=== PATIENT | female | born 1960 | race Caucasian/White ===

== ENCOUNTER → 2017-04-16 | Outpatient (CLI) | payer MEDICARE, BC, MEDICAID ==
[~2017-04-16] MED LIST: ASPRIN; ESTRADIOL1 MG PO; FERROUS SULFATE27 MG PO; GLUCOSAMINE CHO1 CAP PO; LEVOTHYROXINE0.05 MG PO; MULTI VITAMINS1 TAB PO; NORCO 325 MG-51 TAB PO; OMEPRAZOLE DR20 MG PO; PERCOCET 325 MG1 TA2 PO; ROPINIROLE HY0.25 MG PO; SEE INSTRUCTIONS IT; SUMATRIPTAN SUC50 MG PO; TOVIAZ8 MG PO; VENLAFAXINE HCL75 M1 PO; [UNRECOGNIZED DRUG - CODE]
== END ==
LOC: COL.RAD 12:44
DX: M25.512 Pain in left shoulder (principal)
CPT/HCPCS: J3301; Q9967

== ENCOUNTER → 2017-06-22 | Outpatient (CLI) | payer MEDICARE, BC, MEDICAID | LOC: MC.RAD 10:09 | DX: Z12.31 Encounter for screening mammogram for malignant neoplasm of breast (principal) ==

== ENCOUNTER → 2017-07-23 | Outpatient (CLI) | payer MEDICARE, BC, MEDICAID | LOC: BHSO 10:37 | DX: F33.1 Major depressive disorder, recurrent, moderate (principal) ==

== ENCOUNTER → 2017-09-13 | Outpatient (CLI) | payer MEDICARE, BC, MEDICAID | LOC: BHSO 13:22 | DX: F33.41 Major depressive disorder, recurrent, in partial remission (principal) | CPT/HCPCS: G0463 ==

== ENCOUNTER → 2018-02-20 | Outpatient (CLI) | payer MEDICARE, BC, MEDICAID | LOC: BHSO 14:29 | DX: F43.10 Post-traumatic stress disorder, unspecified (principal) | CPT/HCPCS: G0463 ==

== ENCOUNTER → 2018-05-02 | Outpatient (CLI) | payer MEDICARE, BC, MEDICAID | LOC: BHSO 14:40 | DX: F43.10 Post-traumatic stress disorder, unspecified (principal) | CPT/HCPCS: G0463 ==

== ENCOUNTER → 2018-07-16 | Outpatient (CLI) | payer MEDICARE, BC, MEDICAID | LOC: MC.RAD 07:48 | DX: Z12.31 Encounter for screening mammogram for malignant neoplasm of breast (principal) ==

== ENCOUNTER → 2019-11-04 | Outpatient (CLI) | payer MEDICARE, BC, MEDICAID | LOC: MC.RAD 10:00 | DX: Z12.31 Encounter for screening mammogram for malignant neoplasm of breast (principal) ==

== ENCOUNTER 2020-07-06 13:27 | Inpatient (IN) | payer MEDICARE, BC, MEDICAID ==
[~2020-07-06] VITALS: Ht 172.8 cm; Wt 88.4 kg
--- NOTE | 2020-09-01 07:20 | NUR ---
The patient ambulated back to [place] [facility] with her walker using a steady gait and appeared to tolerate the activity well. Vital signs obtained. Consent signed. The patient was instructed to change in the hosptial gown and notify the staff when she is changed.
--- NOTE | 2020-09-01 08:05 | NUR ---
0805 Pre op medications were administered as ordered. 0815 18G IV started in left forearm with one stick, LR Infusing without difficulty. Chlorhexidine scrub completed to right knee. TAMICA hose applied to left leg. 0830 Assessment completed. Heart Reg. Lungs clear. Bowel sound audible. Call light is within reach. The patient denies any further needs at this time. 0930 The patient was assisted to bedside commode by EARL Mccallum. She appeared to tolerate the activity well and voided without difficulty. 1030 The patient was given fresh warm blankets at this time. The patient's call light remains within reach. The patient denies any further needs will continue to monitor the patient. 1130 The patient reqeusts fresh warm blankets and for her room lights to be dimmed at this time. Call light is within reach. Will continue to monitor the patient.
--- NOTE | 2020-09-01 11:55 | NUR ---
The patient was taken to the operating room via cart at this time. The patient's chart was sent with her to the operating room at this time. The patient's belongings were taken to the recovery room and will be transferred with the patient up to the 3rd floor post operatively.
--- NOTE | 2020-09-01 21:30 | NUR ---
PT RESTING IN BED. A&OX4. HAD SPINAL IN OR. HAS RETURNED SENSATION TO TOES BUT TINGLING. 2:1 PIVOT TRANSFER TO BSC. INCONTINENT URINE. VOIDED >1000CC CLEAR DILUTE URINE. PT HAS HX INCONTINENCE. PROVIDED BRIEFS W/ PAD. CHNAGED LINENS. TRANFERRED BACK TO BED. PT C/O RT KNEE PAIN. LEVEL5/10. RAMON WRAP THIGH TO ANKLE CDI. PEDAL PULSES PRESENT. SEE MAR FOR PAIN MEDS GIVEN.
[2020-09-02] VITALS (7 sets, daily range): BP systolic 101–145; BP diastolic 54–60; PULSE 51–74; TEMP 97.5–98.4
--- NOTE | 2020-09-02 01:52 | NUR ---
PT HAVING LEVEL 10/10 RT KNEE PAIN. SEE MAR FOR DILAUDID GIVEN. ASSISTED UP TO BSC. PT VOIDING LG AMTS/INCONT. CHANGED PAD. BACK TO BED. PT VERY APPRECIATIVE OF CARES GIVEN. TAMICA POWER OF AND JESSIE IN BR FOR URINARY LEAKAGE. SCD TO LLE. CALL LIGHT IN REACH.
--- NOTE | 2020-09-02 02:10 | NUR ---
SEE WRITTEN NURSING NOTES. SEE MAR FOR PAIN MEDS GIVEN.
[2020-09-02 06:44] LABS: HEMOGLOBIN 11.2 g/dl (12.5-16.0)
--- NOTE | 2020-09-02 06:45 | NUR ---
awake resting in bed, bedside shift report received from EARL Ortiz
[2020-09-02 07:00] LABS: HEMATOCRIT 34.6 % (37.0-47.0)
--- NOTE | 2020-09-02 08:20 | NUR ---
sitting up in chair eating breakfast, was up to bathroom and ambulated well, requesting to take a walk after breakfast and then have pain meds
--- NOTE | 2020-09-02 08:40 | NUR ---
ambulating out to [place] with physical therapy, then returns to room and remains up in chair
--- NOTE | 2020-09-02 09:00 | NUR ---
full assesment completed, medicated with hydrocodone 7.5mg 2 tabs for c/os pain 02/15, no grimacing or moaning noted
--- NOTE | 2020-09-02 12:00 | NUR ---
sitting up in chair ready for lunch, bulky dressing removed from right leg, incision CD&I and covered with aquacel dressing
--- NOTE | 2020-09-02 12:51 | NUR ---
medicated with hydrocodone 7.5mg 2 tabs for c/os pain and in anticipation of therapy
--- NOTE | 2020-09-02 13:11 | NUR ---
bedside shift report given to EARL Landry
--- NOTE | 2020-09-02 13:22 | NUR ---
Received report from EARL Dia. Assumed care for Pt.
--- NOTE | 2020-09-02 15:07 | NUR ---
OT notified MARLA that the patient is interested in getting a tub transfer bench and would like if one could be delivered to her. MARLA met with the patient and her friend, Teodoro (ph#[phone]), to discuss discharge plan. The patient lives alone in [place] in a detention apartment complex. Teodoro states that he lives in the same complex. She reports independence with ADLs and has a cane, crutches, and walker. The patient's PCP is Dr. Nathaniel Tobin and she receives her medications from [facility]. She reports no difficulties obtaining her meds. The patient's DPOA-HC is in EMR and it designates her friend, Teodoro. The patient plans to return home upon discharge and receive outpatient PT at [facility]. MARLA discussed home health services vs outpatient therapy. The patient reports that she would prefer to continue with outpatient therapy. MARLA addressed the tub transfer bench. The patient is interested in getting one and for it to be delivered to her home. MARLA contacted [employer], [employer], and [facility] They were all out of stock. [employer] has some in stock and they are $123.50 plus tax. [employer] also has some in stock at they are $150 plus tax. MARLA met with the patient and her friend to inform. [facility] and have it delivered to her house when she discharges. MARLA notified Yuli at [facility] of this. [facility] will keep one on hold for the patient. MARLA provided the patient with [facility] phone [facility]. The patient reports that she will also be borrowing a transport chair from her shinto. SW to continue to follow.
--- NOTE | 2020-09-02 16:10 | NUR ---
Rounded on Pt, has C/O pain 02/15, medications were given for relief.
[2020-09-02] MEDS ORDERED: LEXAPRO 10MG10 MG PO (19:35)
[2020-09-02] MEDS ORDERED: MYRBETR50MG PO (19:36)
[2020-09-02] MEDS ORDERED: SYNTHROID0.05 MG/TA PO (19:36)
[2020-09-02] MEDS ORDERED: PEPCID40 MG PO (19:36)
[2020-09-02] MEDS ORDERED: REQUIP0.25 MG PO (19:37)
[2020-09-02] MEDS ORDERED: RESTASIS MULTI5.5 ML OP (19:37)
[2020-09-02] MEDS ORDERED: DILAUDID 2MG/2 MG/M1 SQ (19:38)
[2020-09-02] MEDS ORDERED: K-DUR20 MEQ PO (19:39)
[2020-09-02] MEDS ORDERED: LASIX 40MG TABL40 MG PO (19:39)
[2020-09-02] MEDS ORDERED: MULTIPLE VITAMI1 TA5 PO (19:40)
[2020-09-02] MEDS ORDERED: MAG-OX 400400 MG/TAB PO (19:40)
[2020-09-02] MEDS ORDERED: VITAMIN D31000 IU PO (19:41)
[2020-09-02] MEDS ORDERED: MIRALAX PA17 GM/Dose PO ×2 (19:41→19:49)
[2020-09-02] MEDS ORDERED: VITAMIN B12 1541 TAB PO (19:41)
[2020-09-02] MEDS ORDERED: HYDROEYE PO (19:42)
[2020-09-02] MEDS ORDERED: [UNRECOGNIZED DRUG - OTHER] OU (19:43)
[2020-09-02] MEDS ORDERED: VITAMINC1000TA PO (19:43)
[2020-09-02] MEDS ORDERED: STOOL SOFTENER100 M2 PO (19:44)
[2020-09-02] MEDS ORDERED: IRON TABLETS325 MG PO (19:44)
[2020-09-02] MEDS ORDERED: FOLIC ACID0.4 MG PO (19:45)
[2020-09-02] MEDS ORDERED: FOLATE PO (19:45)
[2020-09-02] MEDS ORDERED: FLONASEALLERGY NS (19:46)
[2020-09-02] MEDS ORDERED: NORCO 325 MG-51 TAB PO (19:47)
[2020-09-02] MEDS ORDERED: IMITREX ST6 MG/0.5 M SQ (19:48)
[2020-09-02] MEDS ORDERED: ULTRAM 50MG TAB50 MG PO (19:48)
[2020-09-02] MEDS ORDERED: PHENERGAN12.5 MG/SU RC (19:49)
--- NOTE | 2020-09-02 20:30 | NUR ---
ASSISTED PT TO BR. VOIDING W/O DIFFICULTY/ URINARY INCONTINECE. WEARS BRIEF AND PAD. TOOK WALK IN [place] WITH WALKER. NICKI WELL. BACK TO BED. SEE MAT FOR PAIN MEDS GIVEN. SCD'S ON. CALL LIGHT IN REACH.
[2020-09-03] VITALS: BP 120/54; PULSE 84; TEMP 98.3
[2020-09-03 04:00] VITALS: BP 118/52; PULSE 76; TEMP 97.4
--- NOTE | 2020-09-03 05:35 | NUR ---
INT NEEDLE DC'D AT THIS TIE. UP TO BR. DENIES NEED FOR PAIN MED. USING GOOD SAFETY JUDGEMENT.
--- NOTE | 2020-09-03 06:04 | NUR ---
PT NOW REQUESTED PAIN MED. RELATES SHE IS TRYING TO DO WITHOUT. PAIN LEVEL "8" SEE MAR FOR PAIN MED GIVEN.
[2020-09-03 08:05] VITALS: BP 130/59; PULSE 82; TEMP 98.4
--- NOTE | 2020-09-03 09:40 | NUR ---
PT UP AND OUT TO [place] WITH THERAPY. PT FULLY PARTICIPATED AND THEN RETURNED TO ROOM. PAIN CONTROLLED WITH PO MEDS. PT SHOWERED WITH OT THIS AM. DRESSING TO KNEE CDI WITH AQUACEL OVER INCISION. PT EATING AND DRINKING WITH NO NAUSEA OR VOMITING.
[2020-09-03 11:59] VITALS: BP 130/59; PULSE 78; TEMP 98.8
[2020-09-03] MEDS ORDERED: NORCO 325 MG-7.1 TAB PO (12:36)
[2020-09-03] MEDS ORDERED: XARELTO10 MG PO (12:36)
[2020-09-03] MEDS ORDERED: ULTRAM 50MG TAB50 MG PO (12:38)
--- NOTE | 2020-09-03 14:55 | NUR ---
DISCHARGE INSTRUCTIONS REVIEWED WITH PT AFTER MEETING DISCHARGE CRITERIA AFTER FINISHING PT THIS PM.
--- NOTE | 2020-09-03 14:55 | NUR ---
The patient discharged back home today, 09/03, with outpatient therapy. SW notified AVM of the patient's d/c. [facility] now picking [facility] tub transfer bench. No additional needs at this time.
== END 2020-09-03 14:40 | disposition home or self-care (01) | DRG 470 ==
LOC: JCC 08-24 10:30
PROVIDERS: ADMIT Orthopaedic Surgery
PROC: 0SRC0JZ Replacement of Right Knee Joint with Synthetic Substitute, Open Approach (ICD-10-PCS; principal; 2020-09-01 13:30)
DX: M17.11 Unilateral primary osteoarthritis, right knee (principal); F41.9 Anxiety disorder, unspecified; F32.9 Major depressive disorder, single episode, unspecified; G43.909 Migraine, unspecified, not intractable, without status migrainosus; Z86.718 Personal history of other venous thrombosis and embolism; Z85.41 Personal history of malignant neoplasm of cervix uteri; Z85.43 Personal history of malignant neoplasm of ovary
CPT/HCPCS: A9284; C1713; C1776; J0690; J1170; J2250; J2704; J3010; J7120

== ENCOUNTER → 2020-11-04 | Outpatient (CLI) | payer MEDICARE, BC, MEDICAID ==
[~2020-11-04] MED LIST changes: +DILAUDID 2MG/2 MG/M1 SQ; +FLONASEALLERGY NS; +FOLATE PO; +FOLIC ACID0.4 MG PO; +HYDROEYE PO; +IMITREX ST6 MG/0.5 M SQ; +IRON TABLETS325 MG PO; +K-DUR20 MEQ PO; +LASIX 40MG TABL40 MG PO; +LEXAPRO 10MG10 MG PO; +MAG-OX 400400 MG/TAB PO; +MIRALAX PA17 GM/Dose PO; +MULTIPLE VITAMI1 TA5 PO; +MYRBETR50MG PO; +NORCO 325 MG-7.1 TAB PO; +PEPCID40 MG PO; +PHENERGAN12.5 MG/SU RC; +REQUIP0.25 MG PO; +RESTASIS MULTI5.5 ML OP; +STOOL SOFTENER100 M2 PO; +SYNTHROID0.05 MG/TA PO; +ULTRAM 50MG TAB50 MG PO; +VITAMIN B12 1541 TAB PO; +VITAMIN D31000 IU PO; +VITAMINC1000TA PO; +XARELTO10 MG PO; +[UNRECOGNIZED DRUG - OTHER] OU
== END ==
LOC: MC.RAD 14:19
DX: Z12.31 Encounter for screening mammogram for malignant neoplasm of breast (principal)

== ENCOUNTER 2021-03-07 08:15 | Outpatient (RCR) | payer MEDICARE, BC, MEDICAID | END 2021-03-07 10:00 | disposition home or self-care (01) | LOC: WSPT 08:15 | DX: Z96.651 Presence of right artificial knee joint (principal) ==

== ENCOUNTER 2021-03-18 10:00 | Outpatient (RCR) | payer MEDICARE, BC | END 2021-03-28 09:24 | disposition home or self-care (01) | LOC: WSPT 10:00 | DX: I89.0 Lymphedema, not elsewhere classified (principal) ==

== ENCOUNTER → 2021-11-24 | Outpatient (CLI) | payer MEDICARE, BC | LOC: MC.RAD 11-15 10:45 | DX: Z12.31 Encounter for screening mammogram for malignant neoplasm of breast (principal) ==

== ENCOUNTER → 2023-03-21 | Outpatient (CLI) | payer MEDICARE, BC, MEDICAID | LOC: COL.RAD 14:32 → COL.VAS 03-22 09:45 | DX: R79.89 Other specified abnormal findings of blood chemistry (principal); R09.02 Hypoxemia; R06.09 Other forms of dyspnea; I34.0 Nonrheumatic mitral (valve) insufficiency; R79.1 Abnormal coagulation profile | CPT/HCPCS: Q9967 ==

== ENCOUNTER → 2023-04-12 | Outpatient (CLI) | payer MEDICARE, BC, MEDICAID | LOC: COL.CARD 07:28 | DX: R09.02 Hypoxemia (principal) ==

== ENCOUNTER → 2024-04-14 | Outpatient (CLI) | payer MEDICARE, BC, MEDICAID ==
[~2024-04-14] MED LIST changes: +Albuterol 0.083% Neb Soln 2.5 MG/3 ML UD IH ONE
== END ==
LOC: COL.CARD 10:31
DX: R06.02 Shortness of breath (principal)

== ENCOUNTER 2024-05-05 11:12 | Emergency (ER) | payer MEDICARE, BC, MEDICAID ==
[~2024-05-05] VITALS: Ht 172.7 cm; Wt 85.9 kg
[~2024-05-05 11:12] MED LIST changes: -Albuterol 0.083% Neb Soln 2.5 MG/3 ML UD IH ONE
[2024-05-05 11:30] VITALS: TEMP 98.3
[2024-05-05] MEDS ORDERED: Acetaminophen 500 MG TAB PO ONE (13:15)
[2024-05-05] MEDS ORDERED: diazePAM 5 MG TAB PO ONE (13:15)
[2024-05-05] MEDS ORDERED: dexAMETHasone 10 MG/ML VIAL IM ONE (13:30)
[2024-05-05 14:06] LABS: URINE APPEARANCE CLOUDY (CLEAR/HAZY); URINE BLOOD TRACE (NEGATIVE); URINE COLOR Dark Yellow (YELLOW); URINE GLUCOSE NEGATIVE (NEGATIVE); URINE KETONE TRACE (NEGATIVE); URINE NITRATE NEGATIVE (NEGATIVE); URINE PROTEIN(semi-quant) TRACE (NEGATIVE)
[2024-05-05 14:27] LABS: COLLECTION METHOD CLEAN CATCH; URINE WBC 0-2 /hpf (0-2)
[2024-05-05 14:28] LABS: URINE BACTERIA RARE /hpf (NONE SEEN); URINE CALCIUM OXALATE CRYSTAL PRESENT (NOT PRESENT)
[2024-05-05 15:44] VITALS: BP 101/67; PULSE 67
== END 2024-05-05 15:44 | disposition home or self-care (01) ==
LOC: COL.ER 11:12
PROVIDERS: Emergency Medicine
DX: M54.50 Low back pain, unspecified (principal)
CPT/HCPCS: J1100